=== PATIENT | male | born 1970 | race Caucasian/White ===

== ENCOUNTER 2022-04-07 16:03 | Emergency (ER) | payer OTHER ==
[2022-04-07 16:18] VITALS: TEMP 98.2; BMI 39.7
[2022-04-07] MEDS ORDERED: ACETAMINOPHEN 500 MG TABLET (FP) PO ONE (17:35)
[2022-04-07] MEDS ORDERED: ACETAMINOPHEN 500 MG TABLET (FP) ONE ×2 (17:38→17:40)
[2022-04-07 18:14] VITALS: BP 143/89; PULSE 89; RESP 18
== END 2022-04-07 18:05 | disposition left against medical advice (07) ==
LOC: FER 16:03
DX: M54.2 Cervicalgia (principal)
CPT/HCPCS: 99283-25